=== PATIENT | male | born 1995 ===

== ENCOUNTER 2020-04-01 05:15 | Emergency (ER) | payer OTHER ==
[~2020-04-01] VITALS: Ht 195.6 cm; Wt 86.2 kg
[2020-04-01 05:20] VITALS: Ht 195.6 cm; Wt 86.2 kg
[2020-04-01 06:07] VITALS: BP 95/54
== END 2020-04-01 06:07 | disposition other institution (70) ==
LOC: ED 05:15
DX: Z02.89 Encounter for other administrative examinations (principal)